=== PATIENT | female | born 1950 | race Two or more races ===

== ENCOUNTER 2023-01-28 12:32 | Emergency (ER) | payer MEDICAID, MEDICARE ==
[~2023-01-28] VITALS: Ht 167.6 cm; Wt 57.6 kg
[2023-01-28 13:51] VITALS: BP 96/62; PULSE 89; TEMP 99.3
[2023-01-28 15:15] VITALS: RESP 20; O2SAT 98
[2023-01-28] MEDS ORDERED: ALBUTEROL SULF 2.5 MG/0.5ML(0.5%) NEB SOLN NEB ONE (15:15)
[2023-01-28] MEDS ORDERED: IPRATROPIUM BROM 0.5 MG/2.5ML INH SOL NEB ONE (15:15)
[2023-01-28] MEDS ORDERED: PROM1SOL4 PO (15:40)
[2023-01-28] MEDS ORDERED: AUG875T PO (15:40)
== END 2023-01-28 15:43 | disposition home or self-care (01) ==
LOC: ER 12:32
DX: J20.9 Acute bronchitis, unspecified (principal); H66.91 Otitis media, unspecified, right ear; F17.210 Nicotine dependence, cigarettes, uncomplicated
CPT/HCPCS: 71046; 94640; 99283; J7644